=== PATIENT | male | born 1930 | race Caucasian/White ===

== ENCOUNTER → 2016-12-25 | Outpatient (CLI) | payer MEDICARE ==
[~2016-12-25] MED LIST: ASP81TEC PO; ATOR10TA PO; CEFU500T PO; CLOP75TA PO; CPR500T PO; CYAN100053 IJ; ENAL2.5T PO; LEVO500T2 PO; LEVO750T24 PO; MECLIZINE; METO-370 PO; METO-387 PO; ONDAN4ODT PO; PANT40TA2 PO; PNT40TEC PO
== END ==
LOC: CARD 10:01
PROVIDERS: ATTEND Physician Assistant
DX: I10 Essential (primary) hypertension (principal); I08.0 Rheumatic disorders of both mitral and aortic valves; E78.2 Mixed hyperlipidemia
CPT/HCPCS: 93306

== ENCOUNTER 2017-08-25 07:49 | Emergency (ER) | payer MEDICARE ==
[~2017-08-25] VITALS: Ht 177.8 cm; Wt 81.2 kg
[2017-08-25] MEDS ORDERED: NS IV 500 ML 500 ML IV ONE (08:21)
[2017-08-25] MEDS ORDERED: LORazepam INJ 2 MG/ML (ATIVAN) VIAL IVP ONE (08:30)
[2017-08-25 08:37] VITALS: BP_SYST 157; BP_SYST 170; BP_SYST 171; BP_DIAS 84; BP_DIAS 85; BP_DIAS 86
--- NOTE | 2017-08-25 08:39 | ED Neurological Problem ---
General Chief Complaint: Dizziness/Syncope Stated Complaint: SOA Nursing Triage Note: pt presents to ed via ems with complaints of dizziness, generalized weakness, fulton starting around 0615. Pt was scheduled to have a stress test at 0700 this am. Nursing Sepsis Screen: No Definite Risk Source: patient, family Exam Limitations: no limitations History of Present Illness Date Seen by Provider: August 25, 2017 Time Seen by Provider: 08:25 Initial Comments Patient presents to the ER by EMS with chief complaint that he woke up this morning about 6:15 with some headache and dizziness that he felt like he was going to fall or faint as well as generalized weakness. He says this happens from time to time and he gets numbness in both of his legs when they swell up and he feels like his legs are more swollen than usual although his left leg is always more swollen than the right. He is not having any chest pain or shortness of breath. He does not wear oxygen have COPD or use a CPAP machine. He quit smoking 10 or 20 years ago. He denies any photophobia, blindness, discharge from the eyes, recent illness, nasal congestion, ears feeling full or popping. He is not having any nausea. EMS reports they did give him some Zofran on the way in and establish an IV but were unable to check a blood sugar because there glucometer battery ran out. Patient denies diabetes. He is known to Dr. Forte, cardiology and he says he has these attacks. He also has a lot of anxiety. He denies any cough or shortness of air. Allergies and Home Medications Allergies Coded Allergies: acetaminophen (Verified Allergy, Unknown, 10/22/13) CAN TAKE TYLENOL ALONE oxycodone HCl (Verified Allergy, Unknown, 10/22/13) PATIENT STATES HE CAN TAKE TYLENOL ALONE, HAS BEEN SO LONG SINCE HE TOOK PERCOET CAN NOT REMEMBER THE REACTION. Ywfrdle-Jij-Pza Reductase Inhibitor (Unverified Adverse Reaction, Unknown , MUSCLE SORENESS, 10/22/13) Home Medications Aspirin 81 Mg Tabec, 81 MG PO DAILY, (Reported) Cefuroxime Axetil 500 Mg Tablet, 500 MG PO BID Prescribed by: NORA FORTE on 02/16/15 1334 Cyanocobalamin 1,000 Mcg/Ml Vial, 1,000 MCG IJ EVERY 3 WEEKS, (Reported) Enalapril Maleate 2.5 Mg Tablet, 2.5 MG PO DAILY, (Reported) Metoprolol Succinate 25 Mg Tab.er.24h, 25 MG PO DAILY Prescribed by: NORA FORTE on 02/16/15 1334 Pantoprazole Sodium 40 Mg Tablet.dr, 40 MG PO DAILY, (Reported) Patient Home Medication List Home Medication List Reviewed: Yes Review of Systems Constitutional: No chills, No diaphoresis, No fever; malaise, weakness Eyes: Denies Blindness, Denies Blurred Vision, Denies Inflammation, Denies Pain , Denies Photophobia, Denies Vision Changes Ears, Nose, Mouth, Throat: denies ear pain, denies ear discharge, denies nose pain, denies nose discharge, denies throat pain Respiratory: No cough, No short of breath, No stridor, No wheezing Cardiovascular: No chest pain, No edema Gastrointestinal: No abdominal pain, No constipation, No diarrhea, No nausea, No vomiting Genitourinary: No discharge, No dysuria Musculoskeletal: No back pain, No joint pain Skin: No pruritus, No rash Psychiatric/Neurological: Denies Cognitive Dysfunction; Headache; Denies Numbness, Denies Tingling; Weakness Past Mxnuijm-Lzjmcg-Qmabgw Hx Patient Social History Alcohol Use: Denies Use Recreational Drug Use: No Smoking Status: Former Smoker Former Smoker, Quit: September 01, 1996 Recent Foreign Travel: No Contact w/Someone Who Travel: No Recent Infectious Disease Expo: No Recent Hopitalizations: Yes Physical Abuse: No Sexual Abuse: No Mistreated: No Fear: No Immunizations Up To Date Date of Pneumonia Vaccine: Oct 22, 2009 Date of Influenza Vaccine: Jan 12, 2015 Past Medical History Surgeries: Yes (HERNIA, PROSTATE) Abdominal, Appendectomy, Pacemaker, Tonsillectomy Respiratory: No Cardiac: Yes (tachycardia, mitral regurgitation, sick sinus syndrome, ntricuspid regurgit) High Cholesterol, Hypertension Neurological: Yes Headaches /Migraines Reproductive Disorders: No Genitourinary: Yes Benign Prostatic Hyperpl, Prostate Problems Gastrointestinal: Yes Gastroesophageal Reflux, Ulcer Musculoskeletal: No Endocrine: No Cancer: No Psychosocial: No Nursing Suicide Risk Score: 0 Blood Disorders: Yes (Anemia) Family Medical History Family history: Cardiovascular disease G8 SISTER Stroke 19 FATHER Physical Exam Vital Signs Vital Signs - First Documented 08/25/17 07:58 Temp 96.8 Pulse 76 Resp 18 B/P (MAP) 178/93 (121) Pulse Ox 97 Capillary Refill : Less Than 3 Seconds General Appearance: WD/WN, no apparent distress HEENT: PERRL/EOMI, normal ENT inspection, TMs normal, pharynx normal Neck: non-tender, full range of motion, supple, normal inspection Respiratory: chest non-tender, lungs clear, normal breath sounds, no respiratory distress, no accessory muscle use Cardiovascular: normal peripheral pulses, regular rate, rhythm, other (trace edema left leg; no edema right leg) Peripheral Pulses: 2+ Dorsalis Pedis (R), 2+ Left Dors-Pedis (L), 2+ Radial Pulses (R), 2+ Radial Pulses (L) Gastrointestinal: normal bowel sounds, non tender, soft Extremities: normal range of motion, normal capillary refill Neurologic/Psychiatric: alert, normal mood/affect, oriented x 3 Crainal Nerves: normal hearing, normal speech, PERRL Coordination/Gait: normal finger to nose, abnormal gait (transfers with one- person assist) Motor/Sensory: no motor deficit, no sensory deficit, no pronator drift Skin: normal color, warm/dry Lymphatic: no adenopathy Stroke Onset of Symptoms Date of Onset of Symptoms: August 25, 2017 Time of Symptom Onset: 06:15 Onset of Symptoms: Yes Symptoms onset unknown: No NIH Stroke Scale Assessment Select: Initial Level of Consciousness: 0=Alert (0), Level of Consciousness- Questions: 0=Answers both month/age (0), LOC Commands: 0=Performs both tasks (0) , Gaze: Normal (0), Visual Duran: 0=No visual loss (0), Facial Movement ( Facial Paresis): 0=Normal symmetrical mnt (0), Motor Function-Arms Right: 0=No drift (0), Motor Function-Arms Left: 0=No drift (0), Motor Function-Legs Right: 0=No drift (0), Motor Function-Legs Left: 0=No drift (0), Limb Ataxia: 0=Absent (0), Sensory: 0=Normal:no loss (0), Best Language: 0=No aphasia (0), Dysarthria : 0=Normal (0), Extinction & Inattention: 0=No abnormality (0), Total: 0 Stroke Thrombolytic Exclusion Age 18 or Over: No Acute intenal hemorrhage: No History of CVA: No Uncontrolled Coagulation Defec: No Intracranial Hemorrhage: No Severe Hypertension: No GI or Bleed: No Subarachnoid Hemorrhage: No Intracranial Neoplasm/Aneurysm: No Oral Anticoagulants: No Surgery or Trauma: No Puncture of Non-Compressible V: No Recent CPR: No Diabetic Hemorrhagic Retinopat: No Organ Biopsy: No Recent Obstetric Delivery: No Glucose: No (101) Significant Hepatic Dysfunctio: No NIH Stoke Scale >22: No Bacterial Endocarditis: No Pericarditis: No Improving Symptoms: No Platelets: No TPA Contraindication: No IV - TPa Received IV - TPa Procedure Performed?: No Progress/Results/Core Measures Results/Orders Lab Results Laboratory Tests Test 08/25/17 07:56 08/25/17 10:02 Range/Units White Blood Count 3.2 L 4.3-11.0 10^3/uL Red Blood Count 4.74 4.35-5.85 10^6/uL Hemoglobin 10.5 L 13.3-17.7 G/DL Hematocrit 34 L 40-54 % Mean Corpuscular Volume 72 L 80-99 FL Mean Corpuscular Hemoglobin 22 L 25-34 PG Mean Corpuscular Hemoglobin Concent 31 L 32-36 G/DL Red Cell Distribution Width 18.6 H 10.0-14.5 % Platelet Count 229 130-400 10^3/uL Mean Platelet Volume 9.3 7.4-10.4 FL Neutrophils (%) (Auto) 62 42-75 % Lymphocytes (%) (Auto) 27 12-44 % Monocytes (%) (Auto) 9 0-12 % Eosinophils (%) (Auto) 2 0-10 % Basophils (%) (Auto) 1 0-10 % Neutrophils # (Auto) 2.0 1.8-7.8 X 10^3 Lymphocytes # (Auto) 0.8 L 1.0-4.0 X 10^3 Monocytes # (Auto) 0.3 0.0-1.0 X 10^3 Eosinophils # (Auto) 0.1 0.0-0.3 10^3/uL Basophils # (Auto) 0.0 0.0-0.1 10^3/uL Sodium Level 141 135-145 MMOL/L Potassium Level 4.4 3.6-5.0 MMOL/L Chloride Level 114 H 98-107 MMOL/L Carbon Dioxide Level 20 L 21-32 MMOL/L Anion Gap 7 5-14 MMOL/L Blood Urea Nitrogen 18 7-18 MG/DL Creatinine 1.82 H 0.60-1.30 MG/DL Estimat Glomerular Filtration Rate 35 BUN/Creatinine Ratio 10 Glucose Level 101 70-105 MG/DL Calcium Level 8.5 8.5-10.1 MG/DL Magnesium Level 2.2 1.8-2.4 MG/DL Total Bilirubin 0.5 0.1-1.0 MG/DL Aspartate Amino Transf (AST/SGOT) 12 5-34 U/L Alanine Aminotransferase (ALT/SGPT) < 6 0-55 U/L Alkaline Phosphatase 108 40-136 U/L Troponin I < 0.30 <0.30 NG/ML C-Reactive Protein High Sensitivity 0.08 0.00-0.50 MG/DL Total Protein 6.1 L 6.4-8.2 GM/DL Albumin 3.4 3.2-4.5 GM/DL Urine Color YELLOW Urine Clarity CLEAR Urine pH 6.5 5-9 Urine Specific [place] 1.010 L 1.016-1.022 Urine Protein NEGATIVE NEGATIVE Urine Glucose (UA) NEGATIVE NEGATIVE Urine Ketones NEGATIVE NEGATIVE Urine Nitrite NEGATIVE NEGATIVE Urine Bilirubin NEGATIVE NEGATIVE Urine Urobilinogen NORMAL NORMAL MG/DL Urine Leukocyte Esterase NEGATIVE NEGATIVE Urine RBC (Auto) NEGATIVE NEGATIVE Urine RBC NONE /HPF Urine WBC RARE /HPF Urine Squamous Epithelial Cells 0-2 /HPF Urine Crystals NONE /LPF Urine Bacteria NEGATIVE /HPF Urine Casts NONE /LPF Urine Mucus NEGATIVE /LPF Urine Culture Indicated NO My Orders Orders - MARIAMA MONTES Ct Head Wo (08/25/17 08:21) Saline Lock/Iv-Start (08/25/17 08:21) Saline Lock/Iv-Start (08/25/17 08:21) Ns Iv 500 Ml (Sodium Chloride 0.9%) (08/25/17 08:21) Troponin I (08/25/17 08:21) Ekg Tracing (08/25/17:) Monitor-Rhythm Ecg Trace Only (08/25/17:) Cbc With Automated Diff (08/25/17 08:21) Comprehensive Metabolic Panel (08/25/17 08:21) Hs C Reactive Protein (08/25/17 08:21) Magnesium (08/25/17 08:21) Ua Culture If Indicated (08/25/17 08:21) Lorazepam Injection (Ativan Injection) (08/25/17 08:30) Chest Pa/Lat (2 View) (08/25/17 09:57) Medications Given in ED Current Medications Medications Dose Ordered Sig/Monica Route Start Time Stop Time Status Last Admin Dose Admin Lorazepam 0.5 mg ONCE ONCE IVP 08/25/17 08:30 08/25/17 08:31 DC 08/25/17 08:35 0.5 MG Sodium Chloride 500 ml @ 0 mls/hr Q0M ONCE IV 08/25/17 08:21 08/25/17 08:28 DC 08/25/17 08:35 0 MLS/HR Vital Signs/I&O 08/25/17 08/25/17 07:58 08:37 Temp 96.8 Pulse 76 65 63 70 Resp 18 B/P (MAP) 178/93 (121) 157/84 (108) 170/86 (114) 171/85 (113) Pulse Ox 97 Blood Pressure Mean: 121 Progress Progress Note : Time: 08:39 Progress Note Based on his history is not immediately clear what's going on but it seems like this is a lot of intermittent chronic issues that recur. We'll get a CT scan of his head to rule out a bleed there is a remote possibility that this could be related to a stroke however he is having no neurologic symptoms. NIH score of 0. There are still a small suspicion for a small infarct causing his issues especially if it was cerebellar but he has no significant cerebellar deficits on examination other than his difficulty walking. We'll get some orthostatic vital signs and give some fluids, check a battery of labs, EKG and chest x-ray. His oxygen saturations were 98-100% when he arrived but he was breathing rather fast initially about 24 breaths per minute. On reexamination after our initial and interventions his respiratory rate is normal around 12 and he is still not tachycardic. His dizziness could be vertigo related as it happened after he stood up getting out of bed. Could also be coupled or made worse by his background of anxiety. Before doing any Otter-Hallpike maneuvers will try and think about other organic causes or central causes for vertigo/presyncope. He has not been able to give a very meaningful history to help delineate whether or not were dealing with true vertigo versus presyncope, versus imbalance as he does not endorse the room moving, being off balance like he's going to fall, or near his mouth is-syncope or any other definition for dizziness. When asked specifically what dizziness means to him he replies that he is dizzy. He now denies he ever had a headache or any pain whatsoever. The states that this is the same answer he gives when he has talked about this same symptom in the past with Dr. Forte and they've yet come up with a reason for his symptoms. Initial ECG Impression Date: August 25, 2017 Initial ECG Impression Time: 08:17 Initial ECG Rate: 60 Initial ECG Rhythm: Normal Sinus Initial ECG Intervals: WI (224) Initial ECG Impression: 1st Degree AV Block Comment First-degree block however there is no ST elevation or depression Diagnostic Imaging Diagonstic Imaging: CT Plain Films/CT/US/NM/MRI: head Comments [facility] [place] [place] NAME: YADIELDAKSHAYULY Damian [facility] REC#: [id number] PT STATUS: REG ER : 1930 PHYSICIAN: MARIAMA MONTES MD ADMIT DATE: 08/25/17/ER Draft Date of Exam:08/25/17 CT HEAD WO PROCEDURE: CT head without contrast. TECHNIQUE: Multiple contiguous axial images were obtained through the brain without the use of intravenous contrast. INDICATION: Dizziness and lethargy. COMPARISON: 02/05/2015. FINDINGS: The ventricles and sulci are prominent, consistent with the patient's age. There is moderate periventricular hypodensity noted, consistent with senescent change. No sulcal effacement, midline shift, or hemorrhage is detected. The cisterns are patent. The visualized paranasal sinuses are clear. IMPRESSION: Chronic and senescent changes. No acute intracranial process is detected. Dictated on workstation # [id number] Dict: 08/25/17920 Trans: 08/25/17924 [id number] Interpreted by: DAISY TOLBERT MD Electronically signed by: Reviewed: Reviewed by Me Diagonstic Imaging: Xray Plain Films/CT/US/NM/MRI: chest Comments Unremarkable 2 view chest [facility] [place] [place] NAME: YULY GIBBS [facility] REC#: [id number] PT STATUS: REG ER : 1930 PHYSICIAN: MARIAMA MONTES MD ADMIT DATE: 08/25/17/ER Draft Date of Exam:08/25/17 CHEST PA/LAT (2 VIEW) INDICATION: Dizziness and weakness. TIME OF EXAMINATION: 10:48 AM. COMPARISON: 02/15/2015. FINDINGS: The heart size is stable. The dual-lead left subclavian cardiac pacemaker remains in place. No infiltrate or failure is identified. No effusion or pneumothorax is seen. IMPRESSION: No acute cardiopulmonary process is detected. Dictated on workstation # [id number] Dict: 08/25/17 1038 Trans: 08/25/17 1042 [id number] Interpreted by: DAISY TOLBERT MD Electronically signed by: Reviewed: Reviewed by Me Departure Communication (PCP) 1045: Dr Linn; discussed case lab imaging findings and plan for possible outpatient MRI and tilt table testing to workup the possibility of a benign paroxysmal positional vertigo versus a small subacute stroke. Dr. Linn reveals that he has a history of BPPV as well as pacemaker. No known atrial fibrillation. He is more than willing to see the patient this week and help him get set up for an MRI if necessary. We also discussed that he may need physical therapy to help him with his symptomatic otoliths as the patient is not a very good historian and is probably not be reliable enough to do the Kaya maneuvers on his own. Impression Primary Impression: BPPV (benign paroxysmal positional vertigo) Qualified Codes: H81.10 - Benign paroxysmal vertigo, unspecified ear Disposition: HOME, SELF-CARE Condition: Stable Departure-Patient Inst. Decision time for Depature: 10:58 Referrals: RENITA LINN DO (PCP/Family) Primary Care Physician Patient Instructions: Vertigo (a Type of Dizziness) (DC) Add. Discharge Instructions: Please call Dr. Linn's office and request an appointment this week. To help resolve your vertigo you can do the Kaya maneuvers in the handout. If this is unsuccessful at home then you can discuss with Dr. Linn and he can help you set up physical therapy to help you resolve the vertigo. All discharge instructions reviewed with patient and/or family. Voiced understanding. Copy Copies To 1: NORA FORTE MD; RENITA LINN TITUS J August 25, 2017 08:38
[2017-08-25 08:42] LABS: BASOPHILS % (AUTO) 1 % (0-10); EOSINOPHILS # (AUTO) 0.1 10^3/uL (0.0-0.3); EOSINOPHILS % (AUTO) 2 % (0-10); HEMATOCRIT 34 % (40-54); HEMOGLOBIN 10.5 G/DL (13.3-17.7); LYMPHOCYTES # (AUTO) 0.8 X 10^3 (1.0-4.0); LYMPHOCYTES % (AUTO) 27 % (12-44); MEAN CORPUSCULAR HEMOGLOBIN 22 PG (25-34); MEAN CORPUSCULAR HGB CONC 31 G/DL (32-36); MEAN CORPUSCULAR VOLUME 72 FL (80-99); MEAN PLATELET VOLUME 9.3 FL (7.4-10.4); MONOCYTES # (AUTO) 0.3 X 10^3 (0.0-1.0); MONOCYTES % (AUTO) 9 % (0-12); NEUTROPHILS % (AUTO) 62 % (42-75); PLATELET COUNT 229 10^3/uL (130-400); RED BLOOD COUNT 4.74 10^6/uL (4.35-5.85); RED CELL DISTRIBUTION WIDTH 18.6 % (10.0-14.5); WHITE BLOOD COUNT 3.2 10^3/uL (4.3-11.0)
[2017-08-25 08:56] LABS: ALANINE AMINOTRANSFERASE < 6 U/L (0-55); ALBUMIN 3.4 GM/DL (3.2-4.5); ALKALINE PHOSPHATASE 108 U/L (40-136); BILIRUBIN,TOTAL 0.5 MG/DL (0.1-1.0); BUN/CREATININE RATIO 10; CALCIUM 8.5 MG/DL (8.5-10.1); CARBON DIOXIDE 20 MMOL/L (21-32); CHLORIDE 114 MMOL/L (98-107); CREATININE SERUM 1.82 MG/DL (0.60-1.30); GFR ESTIMATED 35; GLUCOSE 101 MG/DL (70-105); MAGNESIUM 2.2 MG/DL (1.8-2.4); POTASSIUM 4.4 MMOL/L (3.6-5.0); SODIUM 141 MMOL/L (135-145); TOTAL PROTEIN 6.1 GM/DL (6.4-8.2)
--- NOTE | 2017-08-25 09:26 | Diagnostic Imaging Report ---
PROCEDURE: CT head without contrast. TECHNIQUE: Multiple contiguous axial images were obtained through the brain without the use of intravenous contrast. INDICATION: Dizziness and lethargy. COMPARISON: 02/05/2015. FINDINGS: The ventricles and sulci are prominent, consistent with the patient's age. There is moderate periventricular hypodensity noted, consistent with senescent change. No sulcal effacement, midline shift, or hemorrhage is detected. The cisterns are patent. The visualized paranasal sinuses are clear. IMPRESSION: Chronic and senescent changes. No acute intracranial process is detected. Dictated by: Dictated on workstation # [id number]
[2017-08-25 10:14] LABS: BILIRUBIN,URINE NEGATIVE (NEGATIVE); CLARITY,URINE CLEAR; COLOR,URINE YELLOW; GLUCOSE, URINE (UA) NEGATIVE (NEGATIVE); KETONES,URINE NEGATIVE (NEGATIVE); LEUKOCYTE ESTERASE ,URINE NEGATIVE (NEGATIVE); NITRITE,URINE NEGATIVE (NEGATIVE); PH,URINE 6.5 (5-9); PROTEIN,URINE NEGATIVE (NEGATIVE); UROBILINOGEN,URINE NORMAL (NORMAL)
[2017-08-25 10:22] LABS: BACTERIA,URINE NEGATIVE /HPF; SQUAMOUS EPITHELIAL CELL,UR 0-2 /HPF; WBC,URINE RARE /HPF
--- NOTE | 2017-08-25 10:43 | Diagnostic Imaging Report ---
INDICATION: Dizziness and weakness. TIME OF EXAMINATION: 10:48 AM. COMPARISON: 02/15/2015. FINDINGS: The heart size is stable. The dual-lead left subclavian cardiac pacemaker remains in place. No infiltrate or failure is identified. No effusion or pneumothorax is seen. IMPRESSION: No acute cardiopulmonary process is detected. Dictated by: Dictated on workstation # [id number]
[2017-08-25 11:26] VITALS: BP 169/84
== END 2017-08-25 11:26 | disposition home or self-care (01) ==
LOC: EDUNIT# 07:49 → ER 07:50
DX: H81.13 Benign paroxysmal vertigo, bilateral (principal); F41.9 Anxiety disorder, unspecified; E78.00 Pure hypercholesterolemia, unspecified; I10 Essential (primary) hypertension; G43.909 Migraine, unspecified, not intractable, without status migrainosus; K21.9 Gastro-esophageal reflux disease without esophagitis; Z88.6 Allergy status to analgesic agent; Z82.49 Family history of ischemic heart disease and other diseases of the circulatory system; Z88.5 Allergy status to narcotic agent; Z87.19 Personal history of other diseases of the digestive system; Z88.8 Allergy status to other drugs, medicaments and biological substances; Z79.82 Long term (current) use of aspirin; Z87.891 Personal history of nicotine dependence; Z90.89 Acquired absence of other organs; Z90.49 Acquired absence of other specified parts of digestive tract; Z95.0 Presence of cardiac pacemaker
CPT/HCPCS: 36415; 70450; 71046; 80053; 81000; 83735; 84484; 85025; 86141; 93005; 93041; 96361; 96374